=== PATIENT | female | born 1940 | race Hispanic/Latino ===

== ENCOUNTER 2020-02-17 06:35 | Day surgery (SDC) | payer MEDICARE ==
[2020-02-17 07:23] LABS: Hematocrit 44.6 % (30.3-42.9); Hemoglobin 14.8 gm/dl (10.1-14.3); Mean Corpuscular HGB Conc 33 % (30-34); Mean Corpuscular Volume 97 fl (79-97); Platelet Count 324 K/mm3 (140-440); Red Blood Count 4.59 M/mm3 (3.65-5.03)
[2020-02-17 07:27] LABS: Basophils # (Auto) 0.1 K/mm3 (0.0-0.1); Eosinophils # (Auto) 0.1 K/mm3 (0.0-0.4); Eosinophils % (Auto) 1.8 % (0.0-4.3); Lymphocytes # (Auto) 2.2 K/mm3 (1.2-5.4); Lymphocytes % (Auto) 30.8 % (13.4-35.0); Monocytes # (Auto) 0.7 K/mm3 (0.0-0.8); Monocytes % (Auto) 9.4 % (0.0-7.3)
[2020-02-17 07:34] LABS: INR 0.87 (0.87-1.13); Partial Thromboplastin Time 27.7 Sec. (24.2-36.6)
[2020-02-17] MEDS: SODIUM CHLORIDE 0.9% 500 ML 500 ML IV SCH ×3 (07:34→08:36)
[2020-02-17 07:39] LABS: BUN/Creatinine Ratio 18; Blood Urea Nitrogen 14 mg/dL (7-17); Calcium 10.1 mg/dL (8.4-10.2); Hemolysis Index 1
[2020-02-17] MEDS ORDERED: LIDOCAINE (1%) 10 MG/1 ML VIAL 20 ML MDV ONE (07:56)
[2020-02-17] MEDS ORDERED: HEPARIN/NS 5000 UNIT/500ML 1,000 ML IR ONE (07:56)
[2020-02-17] MEDS ORDERED: HEPARIN 10,000 UNITS/10 ML VIAL ONE (07:56)
[2020-02-17] MEDS ORDERED: ceFAZolin/Water 2 GM/20 ML 2 GM/20 ML SYRINGE IV ONE (08:23)
[2020-02-17] MEDS: MIDAZOLAM 2 MG/2 ML INJ ONE ×3 (08:36→09:01)
[2020-02-17] MEDS: fentaNYL 100 MCG/2 ML INJ ONE ×3 (08:36→09:01)
[2020-02-17] MEDS: LIDOCAINE (2%) 20 MG/1 ML VIAL 20 ML MDV INFILTRATI ONE ×3 (08:36→08:45)
--- NOTE | 2020-02-17 09:40 | Short Stay Summary ---
Short Stay Documentation Date of service: 02/17/20 - History Principal diagnosis: Peripheral vascular disease with rest pain H&P: obtained from office - Allergies and Medications Current Medications: Allergies No Known Allergies Allergy (Verified 02/17/20 07:02) Home Medications Medication Instructions Recorded Confirmed Last Taken Type Aspirin EC [Halfprin EC] 81 mg PO QDAY 02/17/20 02/17/20 02/14/20 History 81 mg Glucosamn/[place]n/C/Mn/[place] 1 tab PO DAILY 02/17/20 02/17/20 02/16/20 History [[facility] Glucosamine Chondroit Cplt] 1 cap Losartan [Cozaar] 25 mg PO DAILY 02/17/20 02/17/20 02/16/20 History 20 mg Rosuvastatin Calcium [Crestor] 10 mg PO HS 02/17/20 02/17/20 02/16/20 History 10 mg Vit B12/Folic Acid/B6/Aa No.15 1 cap PO DAILY 02/17/20 02/17/20 02/14/20 History [Glycotrol Capsule] 1 cap Active Medications Sodium Chloride (Nacl 0.9% 500 Ml) 500 mls @ 50 mls/hr IV DIRECT ELENA Last Admin: 02/17/20 08:28 Dose: 50 mls/hr Documented by: - Brief post op/procedure progress note Date of procedure: 02/17/20 Pre-op diagnosis: PVD with rest pain Post-op diagnosis: same Procedure: Bilateral common iliac artery revascularization Anesthesia: local Surgeon: JULIO CÉSAR FELIPE Estimated blood loss: minimal Pathology: none Condition: stable - Disposition Condition at discharge: Good Disposition: [id number] TO HOME OR SELFCARE Short Stay Discharge Plan Activity: advance as tolerated Weight Bearing Status: Weight Bear as Tolerated Diet: regular Wound: keep clean and dry, per your surgeon's advice (Bandages to remain in place until tomorrow) Follow up with: JULIO CÉSAR FELIPE MD [Staff Physician] - 7 Days
--- NOTE | 2020-02-17 09:47 | Operative Report ---
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 The patient was brought to the angiographic suite and placed in supine position on the examination table. Initial ultrasound evaluation of her right groin demonstrated a patent right common femoral artery. Initial ultrasound evaluation of her left groin demonstrated a patent left common femoral artery. The groins were prepped and draped in the usual sterile fashion. 1% lidocaine was used for anesthesia. Under ultrasound guidance, the right common femoral artery was cannulated with a 7 cm 21-gauge needle. A 0.018 guidewire was advanced centrally. The needle was removed and a microsheath placed. The 0.018 guidewire was exchanged for a 0.035 guidewire and the micro sheath exchanged for a 5 Maltese vascular sheath. Access to the left common femoral artery was obtained in a similar fashion and an additional 5 Maltese sheath placed on the left. The guidewire in the left would advance easily into the abdominal aorta. On the right, the guidewire was manipulated through the nearly occlusive common iliac artery stenosis with the aid of a vertebral catheter. Positioning was confirmed with contrast injection demonstrating true luminal placement. A flush catheter was advanced over the guidewire through the left sheath. Imaging was obtained in multiple projections. This demonstrates near occlusive stenosis involving the right common iliac artery with a dominant iliolumbar to lumbar anastomotic collateral. The sheaths were exchanged over the guidewires to 7 Maltese 21 cm sheaths which were advanced past the areas of stenosis. Initial angioplasty was performed using kissing 6 mm x 80 mm drug-coated balloons. The balloons were used to treat the common iliac arteries throughout their length. The balloons were insufflated to 3 to 4 kamala for 3 minutes. Following angioplasty, the flush catheter was again advanced through the left sheath and additional imaging obtained. This demonstrated some improved luminal flow however, critical stenosis remains. A 8 mm x 59mm [place] VBX stent was advanced through the left sheath, an 8 mm x 59 mm [place] VBX stent was advanced through the right sheath however would not pass easily and the 7 M[place]ese 21 cm sheath was exchanged for a 7 [place]ese 11 cm sheath. The VBX stent was then advanced through the sheath and positioned in kissing fashion with the contralateral stent to extend from the distal aortic bifurcation into the distal common iliac arteries bilaterally. The stents were then insufflated. On the right, the stent was insufflated to 8 kam[place], on the left, the stent was insufflated to 10 kamala. The stents fully deployed. The balloons were deflated and removed. The pigtail catheter was again advanced through the left and additional contrast injected. This demonstrates brisk flow throughout the common iliac arteries bilaterally with no significant endoleak. The catheter was removed over the guidewire. The 7 Maltese sheaths were removed and hemostasis achieved in both groins using Angio-Seal arterial closure device and compression dressings. The patient tolerated the procedure well. There were no immediate postprocedure complications. Conscious sedation was performed under the guidance of radiologic nursing. Continuous cardiopulmonary monitoring was utilized. Impression: Bilateral common iliac artery revascularization with angioplasty, drug-coated balloon angioplasty and bilateral common iliac artery kissing stents as described with reduction of the near occlusive stenosis to less than 10% and brisk flow from the aorta into the external iliac arteries bilaterally.
[2020-02-17] MEDS ORDERED: CLOPIDOGREL 75 MG TAB PO SCH (10:00)
[2020-02-17] MEDS ORDERED: oxyCODONE /ACETAMINOPHEN 5-325MG TAB ONE (10:19)
[2020-02-17] MEDS ORDERED: oxyCODONE /ACETAMINOPHEN 5-325MG TAB PO SCH (11:00)
[2020-02-17 12:40] VITALS: BP 118/54
== END 2020-02-17 13:25 | disposition home or self-care (01) ==
LOC: CATHLABREC 06:35
PROVIDERS: ATTEND Radiology Diagnostic Radiology
DX: I70.213 Atherosclerosis of native arteries of extremities with intermittent claudication, bilateral legs (principal); I87.1 Compression of vein; E78.00 Pure hypercholesterolemia, unspecified; F17.210 Nicotine dependence, cigarettes, uncomplicated; I10 Essential (primary) hypertension; Z79.82 Long term (current) use of aspirin; Z79.899 Other long term (current) drug therapy; Z98.49 Cataract extraction status, unspecified eye; F41.9 Anxiety disorder, unspecified; Z82.49 Family history of ischemic heart disease and other diseases of the circulatory system; Z83.3 Family history of diabetes mellitus; Z98.890 Other specified postprocedural states
CPT/HCPCS: 36415; 37221; 76937; 80048; 85025; 85610; 85730; 99156; 99157; C1760; C1769; C1874; C1887; C1894; C2623; J0690; J1644; J2250; J3010; J7040; Q9967